=== PATIENT | male | born 1975 | race Caucasian/White ===

== ENCOUNTER → 2020-10-16 | Outpatient (REF) ==
--- NOTE | 2020-10-16 15:57 | REP ---
INDICATION: [facility]- [employer]. COMPARISON: None. TECHNIQUE: Four views of the paranasal sinuses are provided. FINDINGS: The maxillary and frontal sinuses are clear. Ethmoid and sphenoid aeration is normal. Mastoid aeration is normal and symmetric. There is no radiographic evidence of sinusitis or mucosal changes. Bony nasal septum is in the midline. Nasal turbinates soft tissues are symmetric. The nasopharynx appears unremarkable. IMPRESSION: Normal paranasal sinus views. <Electronically signed by Chace Barnes > 10/16/20 [id number]
--- NOTE | 2020-10-16 15:57 | REP ---
INDICATION: [facility] [employer]. COMPARISON: None. TECHNIQUE: Four views of the right elbow are provided. FINDINGS: The views of the right elbow demonstrate normal bones, joints, and soft tissues. No fracture or subluxation is seen. No opaque foreign body noted. IMPRESSION: Negative right elbow series. <Electronically signed by Chace Barnes > 10/16/20 [id number]
--- NOTE | 2020-10-16 15:59 | REP ---
INDICATION: [facility]- [employer]. COMPARISON: None. TECHNIQUE: Four views of the right ankle are obtained. FINDINGS: The ankle mortise is intact. Periarticular soft tissues are unremarkable. Joint space is preserved. No erosive changes seen. There is no evidence of fracture or deformity. Achilles tendon margin appears intact anteriorly. There is a tiny plantar calcaneal spur. No other finding. IMPRESSION: Tiny plantar heel spur. Otherwise negative radiographs of the right ankle. <Electronically signed by Chace Barnes > 10/16/20 [id number]
--- NOTE | 2020-10-16 16:00 | REP ---
INDICATION: [facility]- [employer]. COMPARISON: None. TECHNIQUE: Four views of the right foot are provided. FINDINGS: Four views of the right foot demonstrate overall normal mineralization. Joint spaces are preserved. There is a tiny plantar calcaneal spur.. No fracture or subluxation is seen. No opaque foreign body noted. Bones, joints and soft tissues are otherwise unremarkable. IMPRESSION: Tiny plantar heel spur. Otherwise negative right foot series. <Electronically signed by Chace Barnes > 10/16/20 [id number]
== END ==
LOC: M RAD 15:08
PROVIDERS: ATTEND Internal Medicine
DX: Z00.00 Encounter for general adult medical examination without abnormal findings (principal)